=== PATIENT | female | born 1975 | race Caucasian/White ===

== ENCOUNTER 2016-07-31 10:25 | Emergency (ER) | payer OTHER ==
[2016-07-31] MEDS ORDERED: MORPHINE SULFATE INJ 4 MG IVP ONE (10:35)
--- NOTE | 2016-07-31 10:37 | DR.GENAD ---
HPI - Complaint/Symptoms Chief Complaint Doctors Comments: Patient states that she outside and fell hitting the right side of her head. There was no LOC, Admits to having a bad frontal headache. Patient admits to a history o syncope and is followed by a neurologist. She admits to nausea. - Nurses notes reviewed Nurses Notes Review: Yes - Mode of Arrival Mode of Arrival: EMS - Timing Came on: Suddenly - Duration Duration: Since Onset - Severity Severity: Moderate PMH - PMH Past Medical History: denies: Asthma, Dementia, Depression Surgical History: Unknown, No History, AAA Repair, Abdominal Surgery, Angioplasty/Stents, Carotid Endarterectomy, Cholecystectomy, Ectopic , [employer] ADVISER Surgery, Hysterectomy ROS - Review of Systems Constitutional: No Symptoms Reported. negative: Diaphoresis Eyes: No Symptoms Reported Respiratoy: No Symptoms Reported Cardiovascular: No Symptoms Reported Genitourinary: No Symptoms Reported Neurological: No Symptoms Reported, Headache. negative: Numbness, Paresthesia Musculoskeletal: No Symptoms Reported Integumentary: No Symptoms Reported, Change in Color Hematologic/Lymphatic: No Symptoms Reported, See HPI Endocrine: No Symptoms Reported Psychiatric: See HPI All Other Systems: Reviewed and Negative PE - Vital Signs Vitals: Temperature 98.7 F Pulse Rate 98 Respiratory Rate 16 Blood Pressure 135/98 O2 Sat by Pulse Oximetry 99 - General Limitations: No Limitations General Appearance: Alert, In No Apparent Distress - Head Head Exam: Normal Inspection, Atraumatic - Eyes Eye exam: Normal Appearance, PERRL, EOMI - ENT ENT Exam: Normal Exam, Normal Oropharynx External Ear Exam: Normal External Inspection TM/Canal Exam: Bilateral Normal Nose Exam: Normal Nose Exam Mouth Exam: Normal Inspection Throat Exam: Normal Inspection, Tonsillar Erythema - Neck Neck Exam: Normal Inspection, Full ROM - Chest Chest Inspection: Normal Inspection, Symmetric Chest Wall Rise - Respiratory Respiratory Exam: Normal Lung Sounds Bilat Respiratory Exam: Bilateral Clear to Auscultation - Cardiovascular Cardiovascular Exam: Regular Rate, Normal Rhythm, Bradycardia, Tachycardia - Abdominal Exam Abdominal Exam: Normal Inspection Abdominal Tenderness: negative: RUQ, RLQ, LUQ, LLQ, Epigastrium, Suprapubic, Diffuse, Mild, Moderate, Severe, Other - Extremities Extremities Exam: Normal Inspection, Full ROM - Back Back Exam: Normal Inspection, (R) CVA Tenderness, (L) CVA Tenderness, Muscle Spasm - Neurologic Neurological Exam: Alert, Oriented X3, CN II-XII Intact - Psychiatric Psychiatric Exam: Normal Affect, Normal Mood, Depressed - Skin Skin Exam: Warm, Dry, Intact Course - Reevaluation 1st: Improved ROR - Labs Reviewed Result Diagrams: 07/31/16 10:50 07/31/16 10:50 Laboratory: WBC 10.2 X10^3/uL (3.6-10.0) H 07/31/16 10:50 RBC 5.39 X10^6/uL (3.5-5.4) 07/31/16 10:50 Hgb 15.7 g/dL (12.0-16.0) 07/31/16 10:50 Hct 46.3 % (36.0-47.0) 07/31/16 10:50 MCV 85.9 fL (80.0-100.0) 07/31/16 10:50 MCH 29.0 pg (27.0-34.0) 07/31/16 10:50 MCHC 33.8 g/dL (33.0-35.0) 07/31/16 10:50 RDW 13.7 % (11.6-16.5) 07/31/16 10:50 Plt Count 263 X10^3/uL (150.0-450.0) 07/31/16 10:50 MPV 6.8 fL (7.4-11.0) L 07/31/16 10:50 Neut % 53.4 % (42.0-75.0) 07/31/16 10:50 Lymph % 40.2 % (21.0-51.0) 07/31/16 10:50 [place] % 4.5 % (0.0-13.0) 07/31/16 10:50 Eos % 1.1 % (0.9-2.9) 07/31/16 10:50 Baso % 0.8 % (0.2-1.0) 07/31/16 10:50 Neut # 5.5 x10^3/uL (2.2-4.8) H 07/31/16 10:50 Lymph # 4.1 X10^3/uL (1.3-2.9) H 07/31/16 10:50 [place] # 0.5 x10^3/uL (0.3-0.8) 07/31/16 10:50 Eos # 0.1 x10^3/uL (0.0-0.2) 07/31/16 10:50 Baso # 0.1 X10^3/uL (0.0-0.1) 07/31/16 10:50 Absolute Nucleated RBC 0.0 /100WBC 07/31/16 10:50 Sodium 142 mmol/L (136-145) 07/31/16 10:50 Corrected Sodium 143 mmol/L (136-145) 07/31/16 10:50 Potassium 4.4 mmol/L (3.5-5.1) 07/31/16 10:50 Chloride 105 mmol/L (98-107) 07/31/16 10:50 Carbon Dioxide 28.2 mmol/L (21-32) 07/31/16 10:50 BUN 9 mg/dL (7-18) 07/31/16 10:50 Creatinine 0.52 mg/dL (0.55-1.02) L 07/31/16 10:50 Est GFR (MDRD) Af Amer > 60 (>60) 07/31/16 10:50 Est GFR (MDRD) Non-Af > 60 (>60) 07/31/16 10:50 Glucose 141 mg/dL (65-99) H 07/31/16 10:50 Calcium 9.3 mg/dL (8.5-10.1) 07/31/16 10:50 Corrected Calcium TNP 07/31/16 10:50 Total Bilirubin 0.20 mg/dL (0.2-1.0) 07/31/16 10:50 AST 20 Units/L (15-37) 07/31/16 10:50 ALT 34 Units/L (12-78) 07/31/16 10:50 Alkaline Phosphatase 96 Units/L (46-116) 07/31/16 10:50 Total Protein 7.9 g/dL (6.4-8.2) 07/31/16 10:50 Albumin 4.3 g/dL (3.4-5.0) 07/31/16 10:50 Globulin 3.6 g/dL (2.5-4.5) 07/31/16 10:50 Albumin/Globulin Ratio 1.2 Ratio (1.1-2.1) 07/31/16 10:50 Specimen Type Clean catch urine 07/31/16 11:09 Urine Color Yellow (YELLOW) 07/31/16 11:09 Urine Appearance Clear (CLEAR) 07/31/16 11:09 Urine pH 6.0 (5.0 - 8.0) 07/31/16 11:09 Ur Specific [place] 1.015 (1.000-1.030) 07/31/16 11:09 Urine Protein Negative (NEGATIVE) 07/31/16 11:09 Urine Glucose (UA) Negative (NEGATIVE) 07/31/16 11:09 Urine Ketones Negative (NEGATIVE) 07/31/16 11:09 Urine Occult Blood Negative (NEGATIVE) 07/31/16 11:09 Urine Nitrite Negative (NEGATIVE) 07/31/16 11:09 Urine Bilirubin Negative (NEGATIVE) 07/31/16 11:09 Urine Urobilinogen Normal (NORMAL) 07/31/16 11:09 Ur Leukocyte Esterase Negative (NEGATIVE) 07/31/16 11:09 Urine RBC 0-2 /HPF (NEGATIVE) 07/31/16 11:09 Urine WBC 0-2 /HPF (NEGATIVE) 07/31/16 11:09 Ur Squamous Epith Cells Few /HPF (NEGATIVE) 07/31/16 11:09 Calcium Oxalate Crystal Rare /HPF (NEGATIVE) 07/31/16 11:09 Urine Bacteria Negative /HPF (NEGATIVE) 07/31/16 11:09 Ur Culture Indicated? No/not indicated 07/31/16 11:09 - XRAY XRAY Interpreted by: Radiologist (CT Brain w/o contast: Negative) - Diagnosis Discharge Problem: Headache Qualifiers: Headache type: unspecified Headache chronicity pattern: acute headache Intractability: not intractable Qualified Code(s): R51 - Headache - Discharge Plan Condition: Stable - Follow ups/Referrals Follow ups/Referrals: NFD,None [Primary Care Provider] - 3 days - Instructions
[2016-07-31 10:41] VITALS: BP 135/98; BMI 24.3
[2016-07-31] MEDS ORDERED: MORPHINE SULFATE INJ 4 MG ONE (10:44)
[2016-07-31 10:57] LABS: BASOPHILS # (AUTO) 0.1 X10^3/uL (0.0-0.1); BASOPHILS % (AUTO) 0.8 % (0.2-1.0); EOSINOPHILS # (AUTO) 0.1 x10^3/uL (0.0-0.2); EOSINOPHILS % (AUTO) 1.1 % (0.9-2.9); HEMATOCRIT 46.3 % (36.0-47.0); HEMOGLOBIN 15.7 g/dL (12.0-16.0); LYMPHOCYTES # (AUTO) 4.1 X10^3/uL (1.3-2.9); LYMPHOCYTES % (AUTO) 40.2 % (21.0-51.0); MEAN CORPUSCULAR HGB CONC 33.8 g/dL (33.0-35.0); MEAN CORPUSCULAR VOLUME 85.9 fL (80.0-100.0); MEAN PLATELET VOLUME 6.8 fL (7.4-11.0); MONOCYTES # (AUTO) 0.5 x10^3/uL (0.3-0.8); MONOCYTES % (AUTO) 4.5 % (0.0-13.0); NEUTROPHILS # (AUTO) 5.5 x10^3/uL (2.2-4.8); NEUTROPHILS % (AUTO) 53.4 % (42.0-75.0); PLATELET COUNT 263 X10^3/uL (150.0-450.0); RED BLOOD COUNT 5.39 X10^6/uL (3.5-5.4); RED CELL DISTRIBUTION WIDTH 13.7 % (11.6-16.5); WHITE BLOOD COUNT 10.2 X10^3/uL (3.6-10.0)
[2016-07-31 11:07] LABS: ALANINE AMINOTRANSFERASE 34 Units/L (12-78); ALBUMIN 4.3 g/dL (3.4-5.0); ALKALINE PHOSPHATASE 96 Units/L (46-116); ASPARTATE AMINO TRANSFERASE 20 Units/L (15-37); BLOOD UREA NITROGEN 9 mg/dL (7-18); CALCIUM 9.3 mg/dL (8.5-10.1); CARBON DIOXIDE 28.2 mmol/L (21-32); CHLORIDE 105 mmol/L (98-107); COR NA(FOR HYPERGLY) 143 mmol/L (136-145); CREATININE 0.52 mg/dL (0.55-1.02); GLUCOSE 141 mg/dL (65-99); SODIUM 142 mmol/L (136-145); TOTAL PROTEIN 7.9 g/dL (6.4-8.2); eGFR BLACK RACES > 60 (>60); eGFR NON BLACK RACES > 60 (>60)
--- NOTE | 2016-07-31 11:15 | CT ---
HISTORY: Fall, hit head, severe headache Study: CT brain without contrast Comparison: None Technique: Multiple axial images of the brain were obtained from the skull base to the vertex without administr ation of IV contrast. Dose reduction techniques including Automated Exposure Control (AEC) and adju stment of mA and kV were utilized. Findings: The brain parenchyma is within normal limits for patient's age. No evidence of acute hemorrhage, mi dline shift, mass effect or abnormal extra-axial fluid collection. The ventricular system is symmet anatoliy and nondilated. The soft tissues and osseous structures are unremarkable. The visualized [place] sinuses are clear. IMPRESSION: 1.No acute intracranial abnormality. Reported By:
[2016-07-31 11:54] LABS: BILIRUBIN,URINE NEGATIVE (NEGATIVE); BLOOD/HEMOGLOBIN,URINE NEGATIVE (NEGATIVE); GLUCOSE, URINE NEGATIVE (NEGATIVE); KETONES,URINE NEGATIVE (NEGATIVE); LEUKOCYTE ESTERASE ,URINE NEGATIVE (NEGATIVE); NITRITES,URINE NEGATIVE (NEGATIVE); PROTEIN,URINE NEGATIVE (NEGATIVE); UROBILINOGEN,URINE NORMAL (NORMAL)
[2016-07-31 12:10] LABS: APPEARANCE,URINE CLEAR (CLEAR); BACTERIA,URINE NEGATIVE /HPF (NEGATIVE); CALCIUM OXALATE CRYSTALS,UR RARE /HPF (NEGATIVE); COLOR,URINE YELLOW (YELLOW); RBC,URINE 0-2 /HPF (NEGATIVE); SQUAMOUS EPITHELIAL CELL,UR FEW /HPF (NEGATIVE)
[2016-07-31] MEDS ORDERED: ATIVAN INJ 2 MG VIAL IVP ONE (12:20)
[2016-07-31] MEDS ORDERED: ATIVAN INJ 2 MG VIAL ONE (12:20)
== END 2016-07-31 13:46 | disposition home or self-care (01) ==
LOC: ER 10:25
DX: R51 Headache (principal)
CPT/HCPCS: 36415; 70450; 80053; 80185; 81001; 85025; 93005; 93010; 96365; 96374; 96375; 99283; J2060; J2270

== ENCOUNTER 2022-07-04 09:53 | Inpatient (IN) ==
[2022-07-04] MEDS ORDERED: PROTONIX INJ 40 MG VIAL IVP ONE (10:01)
[2022-07-04] MEDS ORDERED: NS 1,000 ML IV 1,000 ML IV ONE (10:01)
[2022-07-04] MEDS ORDERED: LEVSIN/MAALOX/LIDOC VISC PO ONE (10:01)
[2022-07-04] MEDS ORDERED: ATIVAN INJ 2 MG VIAL IVP ONE (10:02)
[2022-07-04] MEDS ORDERED: LEVSIN/MAALOX/LIDOC VISC ONE (10:07)
[2022-07-04] MEDS ORDERED: PROTONIX INJ 40 MG VIAL ONE (10:07)
[2022-07-04] MEDS ORDERED: NS 1,000 ML IV 1,000 ML ONE (10:07)
[2022-07-04] MEDS ORDERED: ATIVAN INJ 2 MG VIAL ONE (10:08)
--- NOTE | 2022-07-04 10:08 | DR.NAUSEAF ---
HPI Time Seen Time Seen by Provider: 07/04/22 10:01 Primary Care Physician Primary Care Physician: NFD Complaints Chief Complaint Doctors Comments: 46 y/o female brought in via EMS for evaluation. Ill the past 3 days with nausea, vomiting and decreased PO intake. Denies diarrhea. Has had decreased urine output. + h/o TBI years ago, with subsequent seizure disorder. + seizures past few days, last seizure 2 hours ago. Denies fever, URI symptoms. Having heartburn, mild abdominal discomfort after vomiting. No current MD, no on seizure meds at this time. Chief Complaint:: PT REPORTS NAUSEA, VOMITING AND INTERMITTENT SEIZURES SINCE SUNDAY. PT STATES THAT SHE HASN'T EATEN OR VOIDED SINCE SUNDAY. COVID-19 Coronavirus risk:travel/contact w/high risk person: No Has patient experienced Coronavirus symptoms: No Reviewed Nurses Notes Reviewed: Yes Source History Provided: Patient Mode of Arrival Mode of Arrival: Ambulatory Timing Onset of Chief Complaint: 07/01/22 PMH PMH Past Medical History: Yes Past Medical History: Diabetes and Seizures Past Medical History Comment: TBI Past Surgical History: Yes Surgical History: Appendectomy, and Hysterectomy Past Surgical History Comment: KYPHOPLASTY Family History History of Family Medical Conditions: Yes Family Medical History: Cancer, [place] and Coronary Artery Disease Social History Does patient currently use any type of tobacco product: No Have you used tobacco products in the last 12 months: No Type of Tobacco Use: None Does any household member use tobacco: No Alcohol Use: Rarely Do you use any recreational Drugs:: Yes (MARIJUANA) Lives With: Family Lives Where: Home Travel Risk Coronavirus risk:travel/contact w/high risk person: No Has patient experienced Coronavirus symptoms: No Infectious screening In the last 2 months have you had wt loss of >10#?: NO Have you had fever, night sweats or hemotysis?: No Have you traveled outside the country in the last 6 months?: No Isolation: Standard ROS Review of Systems Constitutional: Weakness Eyes: No Symptoms Reported ENTM: No Symptoms Reported Respiratoy: No Symptoms Reported Cardiovascular: No Symptoms Reported Gastrointestinal/Abdominal: Abdominal Pain, Nausea and Vomiting Genitourinary: Other (decreased urinary output) Neurological: Seizure and Weakness Musculoskeletal: No Symptoms Reported Integumentary: No Symptoms Reported Psychiatric: No Symptoms Reported All Other Systems: Reviewed and Negative PE Vital Signs Vitals: Temperature 98.1 F Pulse Rate 96 Respiratory Rate 28 Blood Pressure [Left Arm] 124/70 Blood Pressure 110/71 O2 Sat by Pulse Oximetry 99 General General Appearance: Alert and In No Apparent Distress Eyes Eye exam: PERRL and EOMI ENT ENT Exam: Normal Oropharynx and Mucous Membranes Moist Neck Neck Exam: Normal Inspection and Full ROM Respiratory Respiratory Exam: Normal Lung Sounds Bilat; negative Accessory Muscle Use or Respiratory Distress Cardiovascular Cardiovascular Exam: Regular Rate, Normal Rhythm and Normal Heart Sounds Abdominal Exam Abdominal Exam: Normal Bowel Sounds and Soft; negative Tenderness Extremities Extremities Exam: Normal Inspection and Full ROM; negative Edema Neurologic Neurological Exam: Alert, Oriented X3 and CN II-XII Intact; negative Motor Sensory Deficit Skin Skin Exam: Warm and Dry COURSE Treatment Treatment: 46 y/o female ill with N/V x 3 days, + having seizures. W/u initiated. Given IV fluids, IV ativan. 1138 - CBC acceptable. CMP with low K+ 2.1, elevated glucose 423. Pt given additional IV fluids, with potassium. Discussed with Dr Lombardo, will admit. ROR Labs Reviewed Laboratory Results Reviewed?: Yes Result Diagrams: 07/04/22 10:47 07/04/22 10:47 Laboratory: WBC 10.8 X10^3/uL (3.6-10.0) H 07/04/22 10:47 RBC 5.17 X10^6/uL (3.5-5.4) 07/04/22 10:47 Hgb 15.6 g/dL (12.0-16.0) 07/04/22 10:47 Hct 45.0 % (36.0-47.0) 07/04/22 10:47 MCV 87.1 fL (80.0-100.0) 07/04/22 10:47 MCH 30.1 pg (27.0-34.0) 07/04/22 10:47 MCHC 34.6 g/dL (33.0-35.0) 07/04/22 10:47 RDW 13.7 % (11.6-16.5) 07/04/22 10:47 Plt Count 181 X10^3/uL (150.0-450.0) 07/04/22 10:47 MPV 7.5 fL (7.4-11.0) 07/04/22 10:47 Neut % (Auto) 67.9 % (42.0-75.0) 07/04/22 10:47 Lymph % (Auto) 21.1 % (21.0-51.0) 07/04/22 10:47 [place] % (Auto) 10.4 % (0.0-13.0) 07/04/22 10:47 Eos % (Auto) 0.2 % (0.9-2.9) L 07/04/22 10:47 Baso % (Auto) 0.4 % (0.2-1.0) 07/04/22 10:47 Neut # (Auto) 7.3 x10^3/uL (2.2-4.8) H 07/04/22 10:47 Lymph # (Auto) 2.3 X10^3/uL (1.3-2.9) 07/04/22 10:47 [place] # (Auto) 1.1 x10^3/uL (0.3-0.8) H 07/04/22 10:47 Eos # (Auto) 0.0 x10^3/uL (0.0-0.2) 07/04/22 10:47 Baso # (Auto) 0.0 X10^3/uL (0.0-0.1) 07/04/22 10:47 Absolute Nucleated RBC 0.1 /100WBC 07/04/22 10:47 Sodium 126 mmol/L (136-145) L 07/04/22 10:47 Corrected Sodium 134 mmol/L (136-145) L 07/04/22 10:47 Potassium 2.1 mmol/L (3.5-5.1) L* 07/04/22 10:47 Chloride 76 mmol/L (98-107) L* 07/04/22 10:47 Carbon Dioxide 44.8 mmol/L (21-32) H 07/04/22 10:47 BUN 38 mg/dL (7-18) H 07/04/22 10:47 Creatinine 1.46 mg/dL (0.55-1.02) H 07/04/22 10:47 Est GFR (MDRD) Af Amer 49 (>60) L 07/04/22 10:47 Est GFR (MDRD) Non-Af 41 (>60) L 07/04/22 10:47 Glucose 423 mg/dL (65-99) H 07/04/22 10:47 Calcium 7.9 mg/dL (8.5-10.1) L 07/04/22 10:47 Corrected Calcium TNP 07/04/22 10:47 Magnesium 1.5 mg/dL (2.0-2.9) L 07/04/22 10:47 Total Bilirubin 2.20 mg/dL (0.2-1.0) H 07/04/22 10:47 AST 44 Units/L (15-37) H 07/04/22 10:47 ALT 46 Units/L (12-78) 07/04/22 10:47 Alkaline Phosphatase 131 Units/L (46-116) H 07/04/22 10:47 Total Protein 7.9 g/dL (6.4-8.2) 07/04/22 10:47 Albumin 4.4 g/dL (3.4-5.0) 07/04/22 10:47 Globulin 3.5 g/dL (2.5-4.5) 07/04/22 10:47 Albumin/Globulin Ratio 1.3 Ratio (1.1-2.1) 07/04/22 10:47 Lipase 73 Units/L (73-393) 07/04/22 10:47 Opioid Opioid Risk Tool Age (Brian box if 16-45): No History of Preadolescent Sexual Abuse: No Total: 0 Total Score Risk Category: Low Risk Copyright: Albert WALKER predicting aberrant behaviors Discharge Plan Diagnosis Discharge Problem: Vomiting, Acute hypokalemia Discharge Plan Patient Disposition: 09 ADMITTED INPATIENT Condition: Stable Orders to Discharge Patient Discharge Orders: Transfer (Routine); Ordered 07/04/22 Ordered By: Jese Mckeon
[2022-07-04] MEDS ORDERED: ZOFRAN INJ 4 MG VIAL IVP ONE (10:29)
[2022-07-04] MEDS ORDERED: ZOFRAN INJ 4 MG VIAL ONE (10:30)
[2022-07-04 10:57] LABS: BASOPHILS % (AUTO) 0.4 % (0.2-1.0); EOSINOPHILS % (AUTO) 0.2 % (0.9-2.9); HEMOGLOBIN 15.6 g/dL (12.0-16.0); LYMPHOCYTES # (AUTO) 2.3 X10^3/uL (1.3-2.9); LYMPHOCYTES % (AUTO) 21.1 % (21.0-51.0); MEAN CORPUSCULAR HEMOGLOBIN 30.1 pg (27.0-34.0); MEAN CORPUSCULAR HGB CONC 34.6 g/dL (33.0-35.0); MEAN CORPUSCULAR VOLUME 87.1 fL (80.0-100.0); MEAN PLATELET VOLUME 7.5 fL (7.4-11.0); MONOCYTES # (AUTO) 1.1 x10^3/uL (0.3-0.8); MONOCYTES % (AUTO) 10.4 % (0.0-13.0); NEUTROPHILS # (AUTO) 7.3 x10^3/uL (2.2-4.8); NEUTROPHILS % (AUTO) 67.9 % (42.0-75.0); RED BLOOD COUNT 5.17 X10^6/uL (3.5-5.4); RED CELL DISTRIBUTION WIDTH 13.7 % (11.6-16.5); WHITE BLOOD COUNT 10.8 X10^3/uL (3.6-10.0)
[2022-07-04 11:15] LABS: ALANINE AMINOTRANSFERASE 46 Units/L (12-78); ALBUMIN 4.4 g/dL (3.4-5.0); ALKALINE PHOSPHATASE 131 Units/L (46-116); ASPARTATE AMINO TRANSFERASE 44 Units/L (15-37); BLOOD UREA NITROGEN 38 mg/dL (7-18); CALCIUM 7.9 mg/dL (8.5-10.1); CARBON DIOXIDE 44.8 mmol/L (21-32); COR NA(FOR HYPERGLY) 134 mmol/L (136-145); CREATININE 1.46 mg/dL (0.55-1.02); LIPASE 73 Units/L (73-393); SODIUM 126 mmol/L (136-145); TOTAL PROTEIN 7.9 g/dL (6.4-8.2); eGFR NON BLACK RACES 41 (>60)
[2022-07-04 11:17] LABS: CHLORIDE 76 mmol/L (98-107)
[2022-07-04] MEDS ORDERED: NS 1/2 + KCL 20 MEQ/L 1,000 ML IV ONE (11:27)
[2022-07-04] MEDS: NS 1/2 + KCL 20 MEQ/L 1,000 ML IV SCH ×2 (11:33→21:26)
[2022-07-04 12:34] LABS: BILIRUBIN,URINE NEGATIVE (NEGATIVE); BLOOD/HEMOGLOBIN,URINE 1+ (NEGATIVE); GLUCOSE, URINE 4+ (NEGATIVE); KETONES,URINE 1+ (NEGATIVE); LEUKOCYTE ESTERASE ,URINE 2+ (NEGATIVE); NITRITES,URINE NEGATIVE (NEGATIVE); PROTEIN,URINE 2+ (NEGATIVE); UROBILINOGEN,URINE NORMAL (NORMAL)
[2022-07-04 12:35] LABS: APPEARANCE,URINE CLEAR (CLEAR); COLOR,URINE YELLOW (YELLOW)
[2022-07-04 12:45] LABS: RBC,URINE 0-2 /HPF (0-3)
[2022-07-04 12:46] LABS: BACTERIA,URINE TRACE /HPF (NEGATIVE); GRANULAR CASTS,URINE RARE /LPF (NEGATIVE); SQUAMOUS EPITHELIAL CELL,UR FEW /HPF (NEGATIVE)
[2022-07-04] MEDS ORDERED: COMPAZINE INJ IVP ONE (13:07)
[2022-07-04] MEDS ORDERED: BENADRYL INJ 50 MG VIAL IVP ONE (13:07)
[2022-07-04] MEDS ORDERED: COMPAZINE INJ ONE (13:09)
[2022-07-04] MEDS ORDERED: BENADRYL INJ 50 MG VIAL ONE (13:10)
[2022-07-04] MEDS ORDERED: MICRO K EXTEN CAP 10 MEQ PO PRN (13:34)
[2022-07-04] MEDS ORDERED: POTASSIUM CHL 60 MEQ/NS 0.45% 500 ML IV PRN (13:34)
[2022-07-04] MEDS ORDERED: MAGNESIUM SULFATE 1 GRAM/100 mL PREMIX 1 G/100 ML BAG IV PRN (13:34)
[2022-07-04] MEDS ORDERED: POTASSIUM CHL 40 MEQ/NS 0.45% 500 ML IV PRN (13:34)
[2022-07-04] MEDS ORDERED: K-RIDER 10 MEQ/NS 100 ML 10 MEQ/100 ML BAG IV PRN (13:34)
[2022-07-04] MEDS ORDERED: POTASSIUM CHLORIDE LIQ 20 MEQ UDC PO PRN (13:34)
[2022-07-04] MEDS ORDERED: K-DUR TAB 20 MEQ PO PRN (13:34)
[2022-07-04] MEDS ORDERED: KLOR-CON PO PRN (13:34)
[2022-07-04] MEDS ORDERED: NS 1/2 + KCL 20 MEQ/L 1,000 ML IV SCH (13:49)
[2022-07-04] MEDS ORDERED: NS IV ONE ×3 (14:00)
[2022-07-04] MEDS ORDERED: [UNRECOGNIZED DRUG - OTHER] IV ONE ×3 (14:00)
[2022-07-04] MEDS ORDERED: POTASSIUM CHLORIDE IV ONE ×3 (14:00)
[2022-07-04] MEDS: NovoLIN R (or HumuLIN R) SC PRN ×2 (17:06→20:43)
[2022-07-04] MEDS ORDERED: MILK OF MAGNESIA PO PRN (22:38)
[2022-07-04] MEDS ORDERED: COLACE CAP 100 MG PO PRN (22:38)
[2022-07-05] MEDS: ZOFRAN INJ 4 MG VIAL IVP PRN ×4 (02:47→21:54)
[2022-07-05] MEDS: MAALOX or MYLANTA PO PRN ×4 (02:50→21:53)
[2022-07-05] MEDS: NovoLIN R (or HumuLIN R) SC PRN ×4 (05:34→21:53)
[2022-07-05] MEDS: NS 1/2 + KCL 20 MEQ/L 1,000 ML IV SCH ×3 (05:35→20:47)
[2022-07-05 06:11] LABS: BASOPHILS # (AUTO) 0.1 X10^3/uL (0.0-0.1); BASOPHILS % (AUTO) 0.3 % (0.2-1.0); EOSINOPHILS % (AUTO) 0.1 % (0.9-2.9); HEMATOCRIT 44.9 % (36.0-47.0); HEMOGLOBIN 15.7 g/dL (12.0-16.0); LYMPHOCYTES % (AUTO) 26.9 % (21.0-51.0); MEAN CORPUSCULAR HEMOGLOBIN 30.4 pg (27.0-34.0); MEAN CORPUSCULAR VOLUME 86.8 fL (80.0-100.0); MEAN PLATELET VOLUME 7.6 fL (7.4-11.0); MONOCYTES # (AUTO) 0.8 x10^3/uL (0.3-0.8); MONOCYTES % (AUTO) 5.4 % (0.0-13.0); NEUTROPHILS # (AUTO) 9.9 x10^3/uL (2.2-4.8); NEUTROPHILS % (AUTO) 67.3 % (42.0-75.0); RED BLOOD COUNT 5.17 X10^6/uL (3.5-5.4); RED CELL DISTRIBUTION WIDTH 13.6 % (11.6-16.5); WHITE BLOOD COUNT 14.8 X10^3/uL (3.6-10.0)
[2022-07-05 06:22] LABS: ALANINE AMINOTRANSFERASE 59 Units/L (12-78); ALBUMIN 4.1 g/dL (3.4-5.0); ALKALINE PHOSPHATASE 129 Units/L (46-116); ASPARTATE AMINO TRANSFERASE 97 Units/L (15-37); BLOOD UREA NITROGEN 27 mg/dL (7-18); CALCIUM 8.6 mg/dL (8.5-10.1); CARBON DIOXIDE 36.1 mmol/L (21-32); CHLORIDE 85 mmol/L (98-107); COR NA(FOR HYPERGLY) 135 mmol/L (136-145); CREATININE 0.83 mg/dL (0.55-1.02); MAGNESIUM 2.4 mg/dL (2.0-2.9); SODIUM 131 mmol/L (136-145); TOTAL PROTEIN 7.6 g/dL (6.4-8.2); eGFR NON BLACK RACES > 60 (>60)
[2022-07-05 09:08] VITALS: BMI 27.3
[2022-07-05] MEDS ORDERED: ROCEPHIN VIAL 1 GRAM 1 G in NS 100 ML IV 100 ML IV SCH (10:15)
[2022-07-05] MEDS ORDERED: CEREBYX INJ 1,000 MG in NS 50 ML IV 50 ML IV NR (11:00)
[2022-07-05] MEDS ORDERED: NS 100 ML IV 100 ML ONE (11:11)
[2022-07-05] MEDS: LEVAQUIN PREMIX IV 500 MG 500 MG/100 ML BAG IV SCH (14:34)
[2022-07-05] MEDS: CEREBYX INJ 100 MG in NS 50 ML IV 50 ML IV SCH (21:52)
[2022-07-06] MEDS ORDERED: CATAPRES TAB 0.1 MG PO ONE (00:14)
--- NOTE | 2022-07-06 00:30 | EKG ---
Test Reason : hypertension Blood Pressure : */* mmHG Vent. Rate : 104 BPM Atrial Rate : 104 BPM P-R Int : 146 ms QRS Dur : 80 ms QT Int : 362 ms P-R-T Axes : 64 73 66 degrees QTc Int : 476 ms Sinus tachycardia Otherwise normal ECG No previous ECGs available Referred By: Confirmed By:
[2022-07-06] MEDS ORDERED: NORMODYNE INJ 20 MG VIAL IV PRN (03:44)
[2022-07-06 06:00] LABS: BASOPHILS % (AUTO) 0.4 % (0.2-1.0); EOSINOPHILS # (AUTO) 0.1 x10^3/uL (0.0-0.2); EOSINOPHILS % (AUTO) 0.7 % (0.9-2.9); HEMATOCRIT 44.7 % (36.0-47.0); HEMOGLOBIN 15.5 g/dL (12.0-16.0); LYMPHOCYTES # (AUTO) 3.8 X10^3/uL (1.3-2.9); LYMPHOCYTES % (AUTO) 42.5 % (21.0-51.0); MEAN CORPUSCULAR HEMOGLOBIN 30.4 pg (27.0-34.0); MEAN CORPUSCULAR HGB CONC 34.7 g/dL (33.0-35.0); MEAN CORPUSCULAR VOLUME 87.5 fL (80.0-100.0); MEAN PLATELET VOLUME 7.8 fL (7.4-11.0); MONOCYTES # (AUTO) 0.6 x10^3/uL (0.3-0.8); MONOCYTES % (AUTO) 6.2 % (0.0-13.0); NEUTROPHILS # (AUTO) 4.5 x10^3/uL (2.2-4.8); NEUTROPHILS % (AUTO) 50.2 % (42.0-75.0); RED BLOOD COUNT 5.11 X10^6/uL (3.5-5.4); RED CELL DISTRIBUTION WIDTH 13.5 % (11.6-16.5)
[2022-07-06] MEDS: CEREBYX INJ 100 MG in NS 50 ML IV 50 ML IV SCH ×3 (06:02→21:17)
[2022-07-06] MEDS: NS 1/2 + KCL 20 MEQ/L 1,000 ML IV SCH ×3 (06:02→20:16)
[2022-07-06] MEDS: MAALOX or MYLANTA PO PRN (06:03)
[2022-07-06] MEDS: ZOFRAN INJ 4 MG VIAL IVP PRN (06:03)
[2022-07-06] MEDS: NovoLIN R (or HumuLIN R) SC PRN ×4 (06:03→21:20)
[2022-07-06 06:09] LABS: ALANINE AMINOTRANSFERASE 76 Units/L (12-78); ALBUMIN 3.9 g/dL (3.4-5.0); ALKALINE PHOSPHATASE 123 Units/L (46-116); ASPARTATE AMINO TRANSFERASE 129 Units/L (15-37); BLOOD UREA NITROGEN 19 mg/dL (7-18); CARBON DIOXIDE 35.4 mmol/L (21-32); CHLORIDE 90 mmol/L (98-107); COR NA(FOR HYPERGLY) 135 mmol/L (136-145); CREATININE 0.77 mg/dL (0.55-1.02); SODIUM 132 mmol/L (136-145); TOTAL PROTEIN 7.5 g/dL (6.4-8.2); eGFR NON BLACK RACES > 60 (>60)
[2022-07-06] MEDS: LEVAQUIN PREMIX IV 500 MG 500 MG/100 ML BAG IV SCH (08:08)
[2022-07-06] MEDS: MOTRIN TAB 800 MG PO PRN ×2 (09:35→21:23)
[2022-07-06] MEDS ORDERED: LEVSIN/MAALOX/LIDOC VISC PO SCH (11:00)
--- NOTE | 2022-07-06 11:39 | DR.H&P ---
H&P - History & Physical for Day of: H&P Date: 07/04/22 - Chief Complaint Chief Complaint: NAUSEA, VOMITING, SEIZURES - History of Present Illness History of Present Illness: IS A 46 YEAR OLD WHITE FEMALE. SHE PRESENTED TO THE ER VIA EMS WITH COMPLAINTS OF PERSISTENT NAUSEA, VOMITING, AND DECREASED ORAL INTAKE. ADDITIONALLY, SHE COMPLAINS OF HAVING MULTIPLE SEIZURES SINCE SYMTPOMS STARTED. SHE REPORTS BEING UNABLE TO EAT OR DRINK WITHOUT SEVERE NAUSEA AND VOMITING. SHE REPORTS DECREASED URINE OUTPUT X 2 DAYS. HER LAST SEIZURE WAS APPROXIMATELY TWO HOURS PRIOR TO ARRIVAL. SHE DENIES DIARREA, FEVER, URI SYMPTOMS. SHE DOES ADMIT TO HEARTBURN AND MILD ABDOMINAL DISCOMFORT AFTER VOMITING. HER PMH INCLUDES TYPE 2 DIABETES, SEIZURE DISORDER, HX OF TRAUMATIC BRAIN INJURY, APPENDECTOMY, , HYSTERECTOMY, AND KYPHOPLASTY. SHE IS NOT CURRENTLY ON ANY DIABETIC OR SEIZURE MEDICATIONS. SHE DOES ADMIT TO RECREATIONAL USE OF MARIJUANA. ON ARRIVAL TO THE HOSPITAL, VITALS WERE: 98.1-91-20-98%-135/87. LABS WERE OBTAINED. WBC 10.8, RBC 5.17, HGB 15.6, HCT 45.0, PLT COUNT 181, SODIUM 126, POTASSIUM 2.1, CHLORIDE 76, CARBON DIOXIDE 44.8, BUN 38, CREATININE 1.46, GLUCOSE 423, CALCIUM 7.9, MAGNESIUM 1.5, TOTAL BILI 2.20, AST 44, ALT 46, ALK PHOS 131, TOTAL PROTEIN 7.9, ALBUMIN 4.4, LIPASE 73. URINALYSIS REVEALED: WBC 5-10. RBC 0-2, LEUKOCYTES 2+, BACTERIA TRACE. BLOOD AND URINE CULTURES WERE SET UP. EKG WAS OBTAINED AND REVEALED: SINUS TACHYCARDIA WITH HR 104. OTHERWISE, NORMAL EKG. IN THE ER, SHE WAS GIVEN A GI COCKTAIL, A NORMAL SALINE BOLUS, PROTONIX 40MG IV X 1, ATIVAN 1MG IV X 1, ZOFRAN 4MG IV X 1, BENADRYL 25MG IV X 1, COMPAZINE 10MG IV X 1. SHE WAS ADMITTED TO THE HOSPITAL FOR FURTHER EVALUATION AND TREATMENT OF ACUTE HYPOKALEMIA, HYPONATREMIA, DEHYDRATION, HYPERGLYCEMIA, INTRACTABLE NAUSEA AND VOMITING. SHE WAS STARTED ON NORMAL SALINE WITH 20MEQ KCL AT 100 ML/HR, LEVAQUIN 500MG IV DAILY, FOSPHENYTOIN SODIUM 100MG IV TID, OTBS ACHS, HUMULIN R SLIDING SCALE, ZOFRAN 4MG IV Q6H PRN, THE POTASSIUM AND MAGNESIUM PROTOCOLS. OTHERWISE, WE PLAN TO FOLLOW- UP WITH AM LABS AND CONTINUE TO MONITOR. TIME SPENT ON CLINICAL ASSESSMENT, REVIWING LABS AND IMAGING, DECISION MAKING, AND DOCUMENTATION GREATER THAN 75 MINUTES. - Past Medical History Past Medical History: Diabetes, Seizures - Past Surgical History Surgical History: Appendectomy, Hysterectomy - Family History Family Medical History: Cancer, [place], Coronary Artery Disease - Social History Does patient currently use any type of tobacco product: No Have you used tobacco products in the last 12 months: No Type of Tobacco Use: None Does any household member use tobacco: No Alcohol Use: None Drug Use: None - Medications Home Medications: amoxicillin Adverse Reaction (Verified 12/11/17 00:19) carisoprodol Adverse Reaction (Verified 12/11/17 00:19) cephalexin [From Keflex] Adverse Reaction (Verified 12/11/17 00:19) clavulanic acid [From Augmentin] Adverse Reaction (Verified 12/11/17 00:19) CONTINUE taking the following medications NK 07/04/22 [History] - Review of Systems Constitutional: Weakness. denies: Fever, Chills Eyes: No Symptoms Reported ENT: No Symptoms Reported Respiratory: No Symptoms Reported Cardiovascular: No Symptoms Reported Gastrointestinal: See HPI, Nausea, Vomiting, Abdominal Pain. denies: Diarrhea, Melena, Hematochezia Genitourinary: No Symptoms Reported Musculoskeletal: No Symptoms Reported Skin: No Symptoms Reported Neurological: Weakness - Physical Exam Vital Signs: Temperature 98.7 F Pulse Rate [Brachial] 88 Pulse Rate 84 Respiratory Rate 18 Blood Pressure [Left Arm] 122/84 Blood Pressure 130/85 O2 Sat by Pulse Oximetry 99 Oriented: Normal Eyes: Normal Ear: Normal Nose: Normal Throat: Normal Respiratory: Clear Throughout Cardiovascular: Normal : Normal Auscultation: Bowel Sounds: Normal Palpation: Normal Tenderness: Diffuse, Mild. negative: Rebound, Guarding, Rigidity Skin: Decreased [place] Musculoskeletal: Normal Psychiatric: Normal Mood Description: Calm Affect: Normal Speech Pattern: Clear - Assessment/Plan (1) Acute hypokalemia Status: Acute Plan: ADMIT, NORMAL SALINE WITH 20MEQ KCL AT 100 ML/HR, LEVAQUIN 500MG IV DAILY, FOSPHENYTOIN SODIUM 100MG IV TID, OTBS ACHS, HUMULIN R SLIDING SCALE, ZOFRAN 4MG IV Q6H PRN, THE POTASSIUM AND MAGNESIUM PROTOCOLS. (2) Hyponatremia Status: Acute (3) Dehydration Status: Acute (4) Hypomagnesemia Status: Acute (5) Intractable nausea and vomiting Status: Acute (6) Diabetes mellitus Qualifiers: Diabetes mellitus type: type 2 Diabetes mellitus residential insulin use: without residential use Diabetes mellitus complication status: with hyperglycemia Qualified Code(s): E11.65 - Type 2 diabetes mellitus with hyperglycemia Status: Chronic (7) Seizure disorder Status: Chronic - Allergies Allergies/Adverse Reactions: Allergies Allergy/AdvReac Type Severity Reaction Status Date / Time amoxicillin AdvReac Verified 12/11/17 00:19 carisoprodol AdvReac Verified 12/11/17 00:19 cephalexin [From Keflex] AdvReac Verified 12/11/17 00:19 clavulanic acid AdvReac Verified 12/11/17 00:19 [From Augmentin]
[2022-07-06] MEDS: LEVSIN/MAALOX/LIDOC VISC PO SCH ×4 (11:43→21:21)
[2022-07-07] MEDS: MAALOX or MYLANTA PO PRN ×2 (00:41→05:04)
[2022-07-07] MEDS: NS 1/2 + KCL 20 MEQ/L 1,000 ML IV SCH ×3 (05:00→20:40)
[2022-07-07] MEDS: CEREBYX INJ 100 MG in NS 50 ML IV 50 ML IV SCH ×3 (05:04→21:25)
[2022-07-07] MEDS: NovoLIN R (or HumuLIN R) SC PRN ×3 (05:44→20:58)
[2022-07-07 05:57] LABS: BASOPHILS % (AUTO) 0.5 % (0.2-1.0); EOSINOPHILS # (AUTO) 0.1 x10^3/uL (0.0-0.2); EOSINOPHILS % (AUTO) 0.8 % (0.9-2.9); HEMATOCRIT 42.6 % (36.0-47.0); HEMOGLOBIN 14.8 g/dL (12.0-16.0); LYMPHOCYTES # (AUTO) 3.9 X10^3/uL (1.3-2.9); LYMPHOCYTES % (AUTO) 43.3 % (21.0-51.0); MEAN CORPUSCULAR HEMOGLOBIN 30.2 pg (27.0-34.0); MEAN CORPUSCULAR HGB CONC 34.7 g/dL (33.0-35.0); MEAN CORPUSCULAR VOLUME 87.1 fL (80.0-100.0); MEAN PLATELET VOLUME 8.2 fL (7.4-11.0); MONOCYTES # (AUTO) 0.6 x10^3/uL (0.3-0.8); MONOCYTES % (AUTO) 6.9 % (0.0-13.0); NEUTROPHILS # (AUTO) 4.3 x10^3/uL (2.2-4.8); NEUTROPHILS % (AUTO) 48.5 % (42.0-75.0); RED CELL DISTRIBUTION WIDTH 13.6 % (11.6-16.5)
[2022-07-07 06:14] LABS: ALANINE AMINOTRANSFERASE 87 Units/L (12-78); ALBUMIN 3.8 g/dL (3.4-5.0); ALKALINE PHOSPHATASE 127 Units/L (46-116); ASPARTATE AMINO TRANSFERASE 106 Units/L (15-37); BLOOD UREA NITROGEN 17 mg/dL (7-18); CALCIUM 8.7 mg/dL (8.5-10.1); CARBON DIOXIDE 29.4 mmol/L (21-32); CHLORIDE 95 mmol/L (98-107); COR NA(FOR HYPERGLY) 137 mmol/L (136-145); CREATININE 0.73 mg/dL (0.55-1.02); SODIUM 133 mmol/L (136-145); eGFR NON BLACK RACES > 60 (>60)
[2022-07-07] MEDS: LEVAQUIN PREMIX IV 500 MG 500 MG/100 ML BAG IV SCH (08:22)
[2022-07-07] MEDS: LEVSIN/MAALOX/LIDOC VISC PO SCH ×4 (08:22→20:32)
[2022-07-07] MEDS: ZOFRAN INJ 4 MG VIAL IVP PRN ×2 (08:25→14:25)
[2022-07-07] MEDS: PEPCID 20 MG VIAL 20 MG in NS 50 ML IV 50 ML IV SCH ×2 (10:16→20:30)
[2022-07-07] MEDS: PROTONIX INJ 40 MG VIAL IVP SCH ×2 (10:16→20:32)
--- NOTE | 2022-07-07 17:00 | PCM.PROG ---
Progress Note - Progress Note for Day of Date of Exam: 07/06/22 - Subjective Subjective: IS CURRENTLY INPATIENT STATUS FOR TREATMENT OF ACUTE HYPOKALEMIA, HYPONATREMIA, DEHYDRATION, HYPOMAGNESEMIA, INTRACTABLE NAUSEA AND VOMITING, AND SEIZURE DISORDER. PMH INCLUDES TYPE 2 DIABETES, SEIZURE DISORDER, HX OF TRAUMATIC BRAIN INJURY, APPENDECTOMY, , HYSTERECTOMY, AND KYPHOPLASTY. TODAY, SHE IS ALERT AND ORIENTED, LYING IN BED ON MORNING ROUNDS. SHE CONTINUES TO COMPLAIN OF HEARTBURN AND MILD EPIGASTRIC PAIN. SHE HAS BEEN HYPERTENSIVE THROUGHOUT THE NIGHT. SHE DENIES HAVING ANY SEIZURE ACTIVITY SINCE ADMISSION. UPON EXAMINATION, HEART IS REGULAR IN RATE AND RHYTHM. BILATERAL LUNGS ARE CLEAR TO AUSCULTATION. ABDOMEN IS ROUND, SOFT, AND NON-TENDER WITH NORMAL BOWEL SOUNDS NOTED IN ALL QUADRANTS. NO UPPER OR LOWER EXTREMITY EDEMA NOTED. HER VITALS THIS MORNING ARE: 98.7-88-18-99%-122/84. LABS WERE OBTAINED. WBC 9.0, RBC 5.11, HGB 15.5, CT 44.7, PLT COUNT 158, SODIUM 132, POTASSIUM 3.8, CHLORIDE 90, CARBON DIOXIDE 35.4, BUN 19, CREATININE 0.77, GLUCOSE 245, CALCIUM 9.0, TOTAL BILI 1.30, AST 129, ALT 76, ALK PHOS 123, TOTAL PROTEIN 7.5, ALBUMIN 3.9. BLOOD AND URINE CULTURES ARE PENDING. SHE IS CURRENTLY RECEIVING NORMAL SALINE WITH 20MEQ KCL AT 100 ML/HR, LEVAQUIN 500MG IV DAILY, FOSPHENYTOIN SODIUM 100MG IV TID, OTBS ACHS, HUMULIN R SLIDING SCALE, ZOFRAN 4MG IV Q6H PRN, THE POTASSIUM AND MAGNESIUM PROTOCOLS. TODAY, WE WILL ADD GI COCKTAIL 15ML QID. OTHERWISE, WE WILL CONTINUE WITH CURRENT PLAN OF CARE. WE WILL FOLLOW-UP WITH AM LABS AND CONTINUE TO MONITOR. TIME SPENT ON CLINICAL ASSESSMENT, REVIEWING LABS AND IMAGING, DECISION MAKING, AND DOCUMENTATION GREATER THAN 45 MINUTES. - Past Medical Family Social History Past Med/Fam/Surg Hx: No changes since H&P Allergies: Allergies amoxicillin Adverse Reaction (Verified 12/11/17 00:19) carisoprodol Adverse Reaction (Verified 12/11/17 00:19) cephalexin [From Keflex] Adverse Reaction (Verified 12/11/17 00:19) clavulanic acid [From Augmentin] Adverse Reaction (Verified 12/11/17 00:19) - Review of Systems ROS: No change since H&P - Vital Signs and I&O's Vital Signs: Temperature 98.5 F Pulse Rate [Brachial] 96 Pulse Rate 84 Respiratory Rate 15 Blood Pressure [Left Arm] 134/81 Blood Pressure 130/85 O2 Sat by Pulse Oximetry 97 Intake and Output: Intake & Output 07/05/22 07/06/22 07/07/22 07/08/22 11:59 11:59 11:59 11:59 Intake Total 2494 / 2494 4654 / 4654 2897 / 2897 988 / 988 Output Total 0 / 0 Balance 2494 / 2494 4654 / 4654 2897 / 2897 988 / 988 - Physical Exam Oriented: Normal Eyes: Normal Ear: Normal Nose: Normal Throat: Normal Respiratory: Normal Cardiovascular: Normal : Normal Auscultation: Bowel Sounds: Normal Palpation: Normal Tenderness: Epigastric, Mild. negative: Rebound, Guarding, Rigidity Skin: Decreased Turgur Musculoskeletal: Normal Psychiatric: Normal Mood Description: Calm Affect: Normal Speech Pattern: Clear - Laboratory and Diagnostics Result Diagrams: 07/07/22 05:34 07/07/22 05:34 Labs: 07/05/22 10:40 Blood Blood Culture - Preliminary 07/05/22 10:30 Blood Blood Culture - Preliminary 07/06/22 01:40 Urine,Clean Catch Urine Culture - Preliminary 07/04/22 12:14 Urine,Clean Catch Urine Culture - Final Laboratory WBC 9.0 X10^3/uL (3.6-10.0) 07/07/22 05:34 RBC 4.90 X10^6/uL (3.5-5.4) 07/07/22 05:34 Hgb 14.8 g/dL (12.0-16.0) 07/07/22 05:34 Hct 42.6 % (36.0-47.0) 07/07/22 05:34 MCV 87.1 fL (80.0-100.0) 07/07/22 05:34 MCH 30.2 pg (27.0-34.0) 07/07/22 05:34 MCHC 34.7 g/dL (33.0-35.0) 07/07/22 05:34 RDW 13.6 % (11.6-16.5) 07/07/22 05:34 Plt Count 167 X10^3/uL (150.0-450.0) 07/07/22 05:34 MPV 8.2 fL (7.4-11.0) 07/07/22 05:34 Neut % (Auto) 48.5 % (42.0-75.0) 07/07/22 05:34 Lymph % (Auto) 43.3 % (21.0-51.0) 07/07/22 05:34 [place] % (Auto) 6.9 % (0.0-13.0) 07/07/22 05:34 Eos % (Auto) 0.8 % (0.9-2.9) L 07/07/22 05:34 Baso % (Auto) 0.5 % (0.2-1.0) 07/07/22 05:34 Neut # (Auto) 4.3 x10^3/uL (2.2-4.8) 07/07/22 05:34 Lymph # (Auto) 3.9 X10^3/uL (1.3-2.9) H 07/07/22 05:34 [place] # (Auto) 0.6 x10^3/uL (0.3-0.8) 07/07/22 05:34 Eos # (Auto) 0.1 x10^3/uL (0.0-0.2) 07/07/22 05:34 Baso # (Auto) 0.0 X10^3/uL (0.0-0.1) 07/07/22 05:34 Absolute Nucleated RBC 0.0 /100WBC 07/07/22 05:34 Sodium 133 mmol/L (136-145) L 07/07/22 05:34 Corrected Sodium 137 mmol/L (136-145) 07/07/22 05:34 Potassium 3.6 mmol/L (3.5-5.1) 07/07/22 05:34 Chloride 95 mmol/L (98-107) L 07/07/22 05:34 Carbon Dioxide 29.4 mmol/L (21-32) 07/07/22 05:34 BUN 17 mg/dL (7-18) 07/07/22 05:34 Creatinine 0.73 mg/dL (0.55-1.02) 07/07/22 05:34 Est GFR (MDRD) Af Amer > 60 (>60) 07/07/22 05:34 Est GFR (MDRD) Non-Af > 60 (>60) 07/07/22 05:34 Glucose 271 mg/dL (65-99) H 07/07/22 05:34 POC Glucose (mg/dL) 190 mg/dL (65-99) H 07/07/22 16:23 Lactic Acid 1.1 mmol/L (0.4-2.0) 07/05/22 10:30 Calcium 8.7 mg/dL (8.5-10.1) 07/07/22 05:34 Corrected Calcium TNP 07/07/22 05:34 Magnesium 2.4 mg/dL (2.0-2.9) 07/05/22 05:46 Total Bilirubin 0.70 mg/dL (0.2-1.0) 07/07/22 05:34 AST 106 Units/L (15-37) H 07/07/22 05:34 ALT 87 Units/L (12-78) H 07/07/22 05:34 Alkaline Phosphatase 127 Units/L (46-116) H 07/07/22 05:34 Total Protein 7.0 g/dL (6.4-8.2) 07/07/22 05:34 Albumin 3.8 g/dL (3.4-5.0) 07/07/22 05:34 Globulin 3.2 g/dL (2.5-4.5) 07/07/22 05:34 Albumin/Globulin Ratio 1.2 Ratio (1.1-2.1) 07/07/22 05:34 Lipase 73 Units/L (73-393) 07/04/22 10:47 Specimen Type Clean catch urine 07/04/22 12:14 Urine Color Yellow (YELLOW) 07/04/22 12:14 Urine Appearance Clear (CLEAR) 07/04/22 12:14 Urine pH 8.0 (5.0 - 8.0) 07/04/22 12:14 Ur Specific [place] 1.010 (1.000-1.030) 07/04/22 12:14 Urine Protein 2+ (NEGATIVE) 07/04/22 12:14 Urine Glucose (UA) 4+ (NEGATIVE) 07/04/22 12:14 Urine Ketones 1+ (NEGATIVE) 07/04/22 12:14 Urine Blood 1+ (NEGATIVE) 07/04/22 12:14 Urine Nitrite Negative (NEGATIVE) 07/04/22 12:14 Urine Bilirubin Negative (NEGATIVE) 07/04/22 12:14 Urine Urobilinogen Normal (NORMAL) 07/04/22 12:14 Ur Leukocyte Esterase 2+ (NEGATIVE) 07/04/22 12:14 Urine RBC 0-2 /HPF (0-3) 07/04/22 12:14 Urine WBC 5-10 /HPF (0-5) A 07/04/22 12:14 Ur Squamous Epith Cells Few /HPF (NEGATIVE) 07/04/22 12:14 Amorphous Sediment 1+ /HPF (NEGATIVE) 07/04/22 12:14 Urine Bacteria Trace /HPF (NEGATIVE) 07/04/22 12:14 Granular Casts Rare /LPF (NEGATIVE) 07/04/22 12:14 Urine Mucus Rare /HPF (NEGATIVE) 07/04/22 12:14 Ur Culture Indicated? Yes/culture set up 07/04/22 12:14 - Plan (1) Acute hypokalemia Status: Acute Plan: NORMAL SALINE WITH 20MEQ KCL AT 100 ML/HR, LEVAQUIN 500MG IV DAILY, FOSPHENYTOIN SODIUM 100MG IV TID, OTBS ACHS, HUMULIN R SLIDING SCALE, ZOFRAN 4MG IV Q6H PRN, GI COCKTAIL 15ML QID, THE POTASSIUM AND MAGNESIUM PROTOCOLS. (2) Hyponatremia Status: Acute (3) Dehydration Status: Acute (4) Hypomagnesemia Status: Acute (5) Intractable nausea and vomiting Status: Acute (6) Epigastric pain Status: Acute (7) Diabetes mellitus Status: Chronic Qualifiers: Diabetes mellitus type: type 2 Diabetes mellitus senior care insulin use: without senior care use Diabetes mellitus complication status: with hyperglycemia Qualified Code(s): E11.65 - Type 2 diabetes mellitus with hyperglycemia (8) Seizure disorder Status: Chronic
--- NOTE | 2022-07-07 17:36 | PCM.PROG ---
Progress Note - Progress Note for Day of Date of Exam: 07/07/22 - Subjective Subjective: IS CURRENTLY INPATIENT STATUS FOR TREATMENT OF ACUTE HYPOKALEMIA, HYPONATREMIA, DEHYDRATION, HYPOMAGNESEMIA, INTRACTABLE NAUSEA AND VOMITING, AND SEIZURE DISORDER. PMH INCLUDES TYPE 2 DIABETES, SEIZURE DISORDER, HX OF TRAUMATIC BRAIN INJURY, APPENDECTOMY, , HYSTERECTOMY, AND KYPHOPLASTY. TODAY, SHE IS ALERT AND ORIENTED, LYING IN BED ON MORNING ROUNDS. SHE CONTINUES TO COMPLAIN OF HEARTBURN AND MILD EPIGASTRIC PAIN. SHE DENIES SIGNIFICANT IMPROVEMENT SINCE YESTERDAY. SHE DENIES HAVING ANY SEIZURE ACTIVITY SINCE ADMISSION. UPON EXAMINATION, HEART IS REGULAR IN RATE AND RHYTHM. BILATERAL LUNGS ARE CLEAR TO AUSCULTATION. ABDOMEN IS ROUND, SOFT, AND NON- TENDER WITH NORMAL BOWEL SOUNDS NOTED IN ALL QUADRANTS. NO UPPER OR LOWER EXTREMITY EDEMA NOTED. HER VITALS THIS MORNING ARE: 98.2-89-18-95%-147/88. LABS WERE OBTAINED. WBC 9.0, RBC 4.90, HGB 14.8, HCT 42.6, PLT COUNT 167, SODIUM 133, POTASSIUM 3.6, CHLORIDE 95, BUN 17, CREATININE 0.73, GLUCOSE 271, CALCIUM 8.7, T OTAL BILI 0.70, AST 106, ALT 87, ALK PHOS 127, TOTAL PROTEIN 7.0, ALBUMIN 3.8. BLOOD AND URINE CULTURES ARE PENDING. SHE IS CURRENTLY RECEIVING NORMAL SALINE WITH 20MEQ KCL AT 100 ML/HR, LEVAQUIN 500MG IV DAILY, FOSPHENYTOIN SODIUM 100MG IV TID, OTBS ACHS, HUMULIN R SLIDING SCALE, GI COCKTAIL 15ML QID, ZOFRAN 4MG IV Q6H PRN, THE POTASSIUM AND MAGNESIUM PROTOCOLS. TODAY, WE WILL ADD PEPCID 20MG I V Q12H AND PROTONIX 40MG IV BID. OTHERWISE, WE WILL CONTINUE WITH CURRENT PLAN OF CARE. WE WILL FOLLOW-UP WITH AM LABS AND CONTINUE TO MONITOR. TIME SPENT ON CLINICAL ASSESSMENT, REVIEWING LABS AND IMAGING, DECISION MAKING, AND DOCUMENTATION GREATER THAN 45 MINUTES. - Past Medical Family Social History Past Med/Fam/Surg Hx: No changes since H&P Allergies: Allergies amoxicillin Adverse Reaction (Verified 12/11/17 00:19) carisoprodol Adverse Reaction (Verified 12/11/17 00:19) cephalexin [From Keflex] Adverse Reaction (Verified 12/11/17 00:19) clavulanic acid [From Augmentin] Adverse Reaction (Verified 12/11/17 00:19) - Review of Systems ROS: No change since H&P - Vital Signs and I&O's Vital Signs: Temperature 98.5 F Pulse Rate [Brachial] 96 Pulse Rate 84 Respiratory Rate 15 Blood Pressure [Left Arm] 134/81 Blood Pressure 130/85 O2 Sat by Pulse Oximetry 97 Intake and Output: Intake & Output 07/05/22 07/06/22 07/07/22 07/08/22 11:59 11:59 11:59 11:59 Intake Total 2494 / 2494 4654 / 4654 2897 / 2897 1378 / 1378 Output Total 0 / 0 Balance 2494 / 2494 4654 / 4654 2897 / 2897 1378 / 1378 - Physical Exam Oriented: Normal Eyes: Normal Ear: Normal Nose: Normal Throat: Normal Respiratory: Normal Cardiovascular: Normal : Normal Auscultation: Bowel Sounds: Normal Palpation: Normal Tenderness: Epigastric, Mild. negative: Rebound, Guarding, Rigidity Skin: Decreased Turgur Musculoskeletal: Normal Psychiatric: Normal Mood Description: Calm Affect: Normal Speech Pattern: Clear - Laboratory and Diagnostics Result Diagrams: 07/07/22 05:34 07/07/22 05:34 Labs: 07/05/22 10:40 Blood Blood Culture - Preliminary 07/05/22 10:30 Blood Blood Culture - Preliminary 07/06/22 01:40 Urine,Clean Catch Urine Culture - Preliminary 07/04/22 12:14 Urine,Clean Catch Urine Culture - Final Laboratory WBC 9.0 X10^3/uL (3.6-10.0) 07/07/22 05:34 RBC 4.90 X10^6/uL (3.5-5.4) 07/07/22 05:34 Hgb 14.8 g/dL (12.0-16.0) 07/07/22 05:34 Hct 42.6 % (36.0-47.0) 07/07/22 05:34 MCV 87.1 fL (80.0-100.0) 07/07/22 05:34 MCH 30.2 pg (27.0-34.0) 07/07/22 05:34 MCHC 34.7 g/dL (33.0-35.0) 07/07/22 05:34 RDW 13.6 % (11.6-16.5) 07/07/22 05:34 Plt Count 167 X10^3/uL (150.0-450.0) 07/07/22 05:34 MPV 8.2 fL (7.4-11.0) 07/07/22 05:34 Neut % (Auto) 48.5 % (42.0-75.0) 07/07/22 05:34 Lymph % (Auto) 43.3 % (21.0-51.0) 07/07/22 05:34 [place] % (Auto) 6.9 % (0.0-13.0) 07/07/22 05:34 Eos % (Auto) 0.8 % (0.9-2.9) L 07/07/22 05:34 Baso % (Auto) 0.5 % (0.2-1.0) 07/07/22 05:34 Neut # (Auto) 4.3 x10^3/uL (2.2-4.8) 07/07/22 05:34 Lymph # (Auto) 3.9 X10^3/uL (1.3-2.9) H 07/07/22 05:34 [place] # (Auto) 0.6 x10^3/uL (0.3-0.8) 07/07/22 05:34 Eos # (Auto) 0.1 x10^3/uL (0.0-0.2) 07/07/22 05:34 Baso # (Auto) 0.0 X10^3/uL (0.0-0.1) 07/07/22 05:34 Absolute Nucleated RBC 0.0 /100WBC 07/07/22 05:34 Sodium 133 mmol/L (136-145) L 07/07/22 05:34 Corrected Sodium 137 mmol/L (136-145) 07/07/22 05:34 Potassium 3.6 mmol/L (3.5-5.1) 07/07/22 05:34 Chloride 95 mmol/L (98-107) L 07/07/22 05:34 Carbon Dioxide 29.4 mmol/L (21-32) 07/07/22 05:34 BUN 17 mg/dL (7-18) 07/07/22 05:34 Creatinine 0.73 mg/dL (0.55-1.02) 07/07/22 05:34 Est GFR (MDRD) Af Amer > 60 (>60) 07/07/22 05:34 Est GFR (MDRD) Non-Af > 60 (>60) 07/07/22 05:34 Glucose 271 mg/dL (65-99) H 07/07/22 05:34 POC Glucose (mg/dL) 190 mg/dL (65-99) H 07/07/22 16:23 Lactic Acid 1.1 mmol/L (0.4-2.0) 07/05/22 10:30 Calcium 8.7 mg/dL (8.5-10.1) 07/07/22 05:34 Corrected Calcium TNP 07/07/22 05:34 Magnesium 2.4 mg/dL (2.0-2.9) 07/05/22 05:46 Total Bilirubin 0.70 mg/dL (0.2-1.0) 07/07/22 05:34 AST 106 Units/L (15-37) H 07/07/22 05:34 ALT 87 Units/L (12-78) H 07/07/22 05:34 Alkaline Phosphatase 127 Units/L (46-116) H 07/07/22 05:34 Total Protein 7.0 g/dL (6.4-8.2) 07/07/22 05:34 Albumin 3.8 g/dL (3.4-5.0) 07/07/22 05:34 Globulin 3.2 g/dL (2.5-4.5) 07/07/22 05:34 Albumin/Globulin Ratio 1.2 Ratio (1.1-2.1) 07/07/22 05:34 Lipase 73 Units/L (73-393) 07/04/22 10:47 Specimen Type Clean catch urine 07/04/22 12:14 Urine Color Yellow (YELLOW) 07/04/22 12:14 Urine Appearance Clear (CLEAR) 07/04/22 12:14 Urine pH 8.0 (5.0 - 8.0) 07/04/22 12:14 Ur Specific [place] 1.010 (1.000-1.030) 07/04/22 12:14 Urine Protein 2+ (NEGATIVE) 07/04/22 12:14 Urine Glucose (UA) 4+ (NEGATIVE) 07/04/22 12:14 Urine Ketones 1+ (NEGATIVE) 07/04/22 12:14 Urine Blood 1+ (NEGATIVE) 07/04/22 12:14 Urine Nitrite Negative (NEGATIVE) 07/04/22 12:14 Urine Bilirubin Negative (NEGATIVE) 07/04/22 12:14 Urine Urobilinogen Normal (NORMAL) 07/04/22 12:14 Ur Leukocyte Esterase 2+ (NEGATIVE) 07/04/22 12:14 Urine RBC 0-2 /HPF (0-3) 07/04/22 12:14 Urine WBC 5-10 /HPF (0-5) A 07/04/22 12:14 Ur Squamous Epith Cells Few /HPF (NEGATIVE) 07/04/22 12:14 Amorphous Sediment 1+ /HPF (NEGATIVE) 07/04/22 12:14 Urine Bacteria Trace /HPF (NEGATIVE) 07/04/22 12:14 Granular Casts Rare /LPF (NEGATIVE) 07/04/22 12:14 Urine Mucus Rare /HPF (NEGATIVE) 07/04/22 12:14 Ur Culture Indicated? Yes/culture set up 07/04/22 12:14 - Plan (1) Acute hypokalemia Status: Acute Plan: NORMAL SALINE WITH 20MEQ KCL AT 100 ML/HR, LEVAQUIN 500MG IV DAILY, FOSPHENYTOIN SODIUM 100MG IV TID, OTBS ACHS, HUMULIN R SLIDING SCALE, ZOFRAN 4MG IV Q6H PRN, GI COCKTAIL 15ML QID, PEPCID 20MG IV BID, PROTONIX 40MG IV BID, THE POTASSIUM AND MAGNESIUM PROTOCOLS. (2) Hyponatremia Status: Acute (3) Dehydration Status: Acute (4) Hypomagnesemia Status: Acute (5) Intractable nausea and vomiting Status: Acute (6) Epigastric pain Status: Acute (7) Diabetes mellitus Status: Chronic Qualifiers: Diabetes mellitus type: type 2 Diabetes mellitus senior living insulin use: without senior living use Diabetes mellitus complication status: with hyperglycemia Qualified Code(s): E11.65 - Type 2 diabetes mellitus with hyperglycemia (8) Seizure disorder Status: Chronic
[2022-07-07] MEDS ORDERED: NS 100 ML IV 100 ML IV ONE (21:00)
[2022-07-08] MEDS: MAALOX or MYLANTA PO PRN ×3 (02:16→12:55)
[2022-07-08] MEDS: ZOFRAN INJ 4 MG VIAL IVP PRN ×2 (02:16→08:27)
[2022-07-08] MEDS: NS 1/2 + KCL 20 MEQ/L 1,000 ML IV SCH ×3 (03:45→20:48)
[2022-07-08 05:05] LABS: BASOPHILS % (AUTO) 0.3 % (0.2-1.0); EOSINOPHILS # (AUTO) 0.1 x10^3/uL (0.0-0.2); EOSINOPHILS % (AUTO) 1.7 % (0.9-2.9); HEMATOCRIT 40.6 % (36.0-47.0); LYMPHOCYTES # (AUTO) 3.6 X10^3/uL (1.3-2.9); LYMPHOCYTES % (AUTO) 42.5 % (21.0-51.0); MEAN CORPUSCULAR HEMOGLOBIN 30.3 pg (27.0-34.0); MEAN CORPUSCULAR HGB CONC 34.5 g/dL (33.0-35.0); MEAN CORPUSCULAR VOLUME 87.8 fL (80.0-100.0); MEAN PLATELET VOLUME 8.2 fL (7.4-11.0); MONOCYTES # (AUTO) 0.6 x10^3/uL (0.3-0.8); MONOCYTES % (AUTO) 6.7 % (0.0-13.0); NEUTROPHILS # (AUTO) 4.2 x10^3/uL (2.2-4.8); NEUTROPHILS % (AUTO) 48.8 % (42.0-75.0); RED BLOOD COUNT 4.63 X10^6/uL (3.5-5.4); RED CELL DISTRIBUTION WIDTH 13.4 % (11.6-16.5); WHITE BLOOD COUNT 8.6 X10^3/uL (3.6-10.0)
[2022-07-08 05:14] LABS: ALANINE AMINOTRANSFERASE 69 Units/L (12-78); ALBUMIN 3.5 g/dL (3.4-5.0); ALKALINE PHOSPHATASE 109 Units/L (46-116); ASPARTATE AMINO TRANSFERASE 67 Units/L (15-37); BLOOD UREA NITROGEN 12 mg/dL (7-18); CALCIUM 8.3 mg/dL (8.5-10.1); CARBON DIOXIDE 27.8 mmol/L (21-32); CHLORIDE 101 mmol/L (98-107); COR NA(FOR HYPERGLY) 139 mmol/L (136-145); CREATININE 0.54 mg/dL (0.55-1.02); SODIUM 136 mmol/L (136-145); TOTAL PROTEIN 6.5 g/dL (6.4-8.2); eGFR NON BLACK RACES > 60 (>60)
[2022-07-08] MEDS: CEREBYX INJ 100 MG in NS 50 ML IV 50 ML IV SCH ×3 (06:10→21:02)
[2022-07-08] MEDS: NovoLIN R (or HumuLIN R) SC PRN ×4 (06:14→20:44)
[2022-07-08] MEDS: PROTONIX INJ 40 MG VIAL IVP SCH ×2 (08:27→20:45)
[2022-07-08] MEDS: LEVSIN/MAALOX/LIDOC VISC PO SCH ×4 (08:27→20:46)
[2022-07-08] MEDS: PEPCID 20 MG VIAL 20 MG in NS 50 ML IV 50 ML IV SCH ×2 (08:28→20:46)
[2022-07-08] MEDS: LEVAQUIN PREMIX IV 500 MG 500 MG/100 ML BAG IV SCH (09:12)
--- NOTE | 2022-07-08 11:24 | PCM.PROG ---
Progress Note Progress Note for Day of Date of Exam: 07/08/22 Subjective Subjective: IS CURRENTLY INPATIENT STATUS FOR TREATMENT OF ACUTE HYPOKALEMIA, HYPONATREMIA, DEHYDRATION, HYPOMAGNESEMIA, INTRACTABLE NAUSEA AND VOMITING, AND SEIZURE DISORDER. PMH INCLUDES TYPE 2 DIABETES, SEIZURE DISORDER, HX OF TRAUMATIC BRAIN INJURY, APPENDECTOMY, , HYSTERECTOMY, AND KYPHOPLASTY. TODAY, SHE IS ALERT AND ORIENTED, LYING IN BED ON MORNING ROUNDS. SHE CONTINUES TO COMPLAIN OF HEARTBURN AND MILD EPIGASTRIC PAIN. SHE DENIES SIGNIFICANT IMPROVEMENT SINCE YESTERDAY. SHE DENIES HAVING ANY SEIZURE ACTIVITY SINCE ADMISSION. UPON EXAMINATION, HEART IS REGULAR IN RATE AND RHYTHM. BILATERAL LUNGS ARE CLEAR TO AUSCULTATION. ABDOMEN IS ROUND, SOFT, AND NON- TENDER WITH NORMAL BOWEL SOUNDS NOTED IN ALL QUADRANTS. NO UPPER OR LOWER EXTREMITY EDEMA NOTED. HER VITALS THIS MORNING ARE: 98.2-89-18-95%-147/88. LABS WERE OBTAINED. WBC 9.0, RBC 4.90, HGB 14.8, HCT 42.6, PLT COUNT 167, SODIUM 133, POTASSIUM 3.6, CHLORIDE 95, BUN 17, CREATININE 0.73, GLUCOSE 271, CALCIUM 8.7, TOTAL BILI 0.70, AST 106, ALT 87, ALK PHOS 127, TOTAL PROTEIN 7.0, ALBUMIN 3.8. BLOOD AND URINE CULTURES ARE PENDING. SHE IS CURRENTLY RECEIVING NORMAL SALINE WITH 20MEQ KCL AT 100 ML/HR, LEVAQUIN 500MG IV DAILY, FOSPHENYTOIN SODIUM 100MG IV TID, OTBS ACHS, HUMULIN R SLIDING SCALE, GI COCKTAIL 15ML QID, ZOFRAN 4MG IV Q6H PRN, THE POTASSIUM AND MAGNESIUM PROTOCOLS. TODAY, WE WILL ADD PEPCID 20MG IV Q12H AND PROTONIX 40MG IV BID. OTHERWISE, WE WILL CONTINUE WITH CURRENT PLAN OF CARE. WE WILL FOLLOW-UP WITH AM LABS AND CONTINUE TO MONITOR. TIME SPENT ON CLINICAL ASSESSMENT, REVIEWING LABS AND IMAGING, DECISION MAKING, AND DOCUMENTATION GREATER THAN 45 MINUTES. Sunday Patient reports that she is feeling a little bit better this morning. She tried yesterday and became very nauseated. She still reports having a fair amount of acid reflux. Her labs look good overall this morning except it is noted her sugar is still running high. This morning her glucose was 213. She is well- hydrated now. We will try given her Zofran before meals and try to advance her diet today to see how she does and if she is tolerating it and not throwing up by tomorrow we will plan on discharging her home. Past Medical Family Social History Past Med/Fam/Surg Hx: No changes since H&P Allergies: Allergies amoxicillin Adverse Reaction (Verified 12/11/17 00:19) carisoprodol Adverse Reaction (Verified 12/11/17 00:19) cephalexin [From Keflex] Adverse Reaction (Verified 12/11/17 00:19) clavulanic acid [From Augmentin] Adverse Reaction (Verified 12/11/17 00:19) Review of Systems ROS: No change since H&P Vital Signs and I&O's Vital Signs: Temperature 97.7 F Pulse Rate [Brachial] 72 Pulse Rate 84 Respiratory Rate 15 Blood Pressure [Left Arm] 131/83 Blood Pressure 130/85 O2 Sat by Pulse Oximetry 94 Intake and Output: Intake & Output 07/05/22 07/06/22 07/07/22 07/08/22 11:59 11:59 11:59 11:59 Intake Total 2494 / 2494 4654 / 4654 2897 / 2897 3806 / 3806 Output Total 0 / 0 Balance 2494 / 2494 4654 / 4654 2897 / 2897 3806 / 3806 Physical Exam Oriented: Normal Eyes: Normal Ear: Normal Nose: Normal Throat: Normal Respiratory: Normal Cardiovascular: Normal : Normal Auscultation: Bowel Sounds: Normal Tenderness: Epigastric and Mild; negative Rebound, Guarding or Rigidity Skin: Decreased [place]ur Musculoskeletal: Normal Psychiatric: Normal Mood Description: Calm Affect: Normal Speech Pattern: Clear Laboratory and Diagnostics Result Diagrams: 07/08/22 04:30 07/08/22 04:30 Labs: 07/06/22 01:40 Urine,Clean Catch Urine Culture - Final 07/05/22 10:40 Blood Blood Culture - Preliminary 07/05/22 10:30 Blood Blood Culture - Preliminary 07/04/22 12:14 Urine,Clean Catch Urine Culture - Final Laboratory WBC 8.6 X10^3/uL (3.6-10.0) 07/08/22 04:30 RBC 4.63 X10^6/uL (3.5-5.4) 07/08/22 04:30 Hgb 14.0 g/dL (12.0-16.0) 07/08/22 04:30 Hct 40.6 % (36.0-47.0) 07/08/22 04:30 MCV 87.8 fL (80.0-100.0) 07/08/22 04:30 MCH 30.3 pg (27.0-34.0) 07/08/22 04:30 MCHC 34.5 g/dL (33.0-35.0) 07/08/22 04:30 RDW 13.4 % (11.6-16.5) 07/08/22 04:30 Plt Count 161 X10^3/uL (150.0-450.0) 07/08/22 04:30 MPV 8.2 fL (7.4-11.0) 07/08/22 04:30 Neut % (Auto) 48.8 % (42.0-75.0) 07/08/22 04:30 Lymph % (Auto) 42.5 % (21.0-51.0) 07/08/22 04:30 [place] % (Auto) 6.7 % (0.0-13.0) 07/08/22 04:30 Eos % (Auto) 1.7 % (0.9-2.9) 07/08/22 04:30 Baso % (Auto) 0.3 % (0.2-1.0) 07/08/22 04:30 Neut # (Auto) 4.2 x10^3/uL (2.2-4.8) 07/08/22 04:30 Lymph # (Auto) 3.6 X10^3/uL (1.3-2.9) H 07/08/22 04:30 [place] # (Auto) 0.6 x10^3/uL (0.3-0.8) 07/08/22 04:30 Eos # (Auto) 0.1 x10^3/uL (0.0-0.2) 07/08/22 04:30 Baso # (Auto) 0.0 X10^3/uL (0.0-0.1) 07/08/22 04:30 Absolute Nucleated RBC 0.0 /100WBC 07/08/22 04:30 Sodium 136 mmol/L (136-145) 07/08/22 04:30 Corrected Sodium 139 mmol/L (136-145) 07/08/22 04:30 Potassium 4.4 mmol/L (3.5-5.1) 07/08/22 04:30 Chloride 101 mmol/L (98-107) 07/08/22 04:30 Carbon Dioxide 27.8 mmol/L (21-32) 07/08/22 04:30 BUN 12 mg/dL (7-18) 07/08/22 04:30 Creatinine 0.54 mg/dL (0.55-1.02) L 07/08/22 04:30 Est GFR (MDRD) Af Amer > 60 (>60) 07/08/22 04:30 Est GFR (MDRD) Non-Af > 60 (>60) 07/08/22 04:30 Glucose 213 mg/dL (65-99) H 07/08/22 04:30 POC Glucose (mg/dL) 218 mg/dL (65-99) H 07/08/22 06:00 Lactic Acid 1.1 mmol/L (0.4-2.0) 07/05/22 10:30 Calcium 8.3 mg/dL (8.5-10.1) L 07/08/22 04:30 Corrected Calcium TNP 07/08/22 04:30 Magnesium 2.4 mg/dL (2.0-2.9) 07/05/22 05:46 Total Bilirubin 0.50 mg/dL (0.2-1.0) 07/08/22 04:30 AST 67 Units/L (15-37) H 07/08/22 04:30 ALT 69 Units/L (12-78) 07/08/22 04:30 Alkaline Phosphatase 109 Units/L (46-116) 07/08/22 04:30 Total Protein 6.5 g/dL (6.4-8.2) 07/08/22 04:30 Albumin 3.5 g/dL (3.4-5.0) 07/08/22 04:30 Globulin 3.0 g/dL (2.5-4.5) 07/08/22 04:30 Albumin/Globulin Ratio 1.2 Ratio (1.1-2.1) 07/08/22 04:30 Lipase 73 Units/L (73-393) 07/04/22 10:47 Specimen Type Clean catch urine 07/04/22 12:14 Urine Color Yellow (YELLOW) 07/04/22 12:14 Urine Appearance Clear (CLEAR) 07/04/22 12:14 Urine pH 8.0 (5.0 - 8.0) 07/04/22 12:14 Ur Specific [place] 1.010 (1.000-1.030) 07/04/22 12:14 Urine Protein 2+ (NEGATIVE) 07/04/22 12:14 Urine Glucose (UA) 4+ (NEGATIVE) 07/04/22 12:14 Urine Ketones 1+ (NEGATIVE) 07/04/22 12:14 Urine Blood 1+ (NEGATIVE) 07/04/22 12:14 Urine Nitrite Negative (NEGATIVE) 07/04/22 12:14 Urine Bilirubin Negative (NEGATIVE) 07/04/22 12:14 Urine Urobilinogen Normal (NORMAL) 07/04/22 12:14 Ur Leukocyte Esterase 2+ (NEGATIVE) 07/04/22 12:14 Urine RBC 0-2 /HPF (0-3) 07/04/22 12:14 Urine WBC 5-10 /HPF (0-5) A 07/04/22 12:14 Ur Squamous Epith Cells Few /HPF (NEGATIVE) 07/04/22 12:14 Amorphous Sediment 1+ /HPF (NEGATIVE) 07/04/22 12:14 Urine Bacteria Trace /HPF (NEGATIVE) 07/04/22 12:14 Granular Casts Rare /LPF (NEGATIVE) 07/04/22 12:14 Urine Mucus Rare /HPF (NEGATIVE) 07/04/22 12:14 Ur Culture Indicated? Yes/culture set up 07/04/22 12:14 Plan (1) Acute hypokalemia: Status: Resolved Plan: NORMAL SALINE WITH 20MEQ KCL AT 100 ML/HR, LEVAQUIN 500MG IV DAILY, FOSPHENYTOIN SODIUM 100MG IV TID, OTBS ACHS, HUMULIN R SLIDING SCALE, ZOFRAN 4MG IV Q6H PRN, GI COCKTAIL 15ML QID, PEPCID 20MG IV BID, PROTONIX 40MG IV BID, THE POTASSIUM AND MAGNESIUM PROTOCOLS. (2) Hyponatremia: Status: Resolved (3) Dehydration: Status: Resolved (4) Hypomagnesemia: Status: Acute (5) Intractable nausea and vomiting: Status: Acute Plan: We will give the patient Zofran prior to meals and try to advance her diet today if she tolerates it. If she does we will plan on discharging her home in the morning. (6) Epigastric pain: Status: Acute (7) Diabetes mellitus: Status: Chronic Qualifiers: Diabetes mellitus complication status: with hyperglycemia Diabetes mellitus fpc insulin use: without fpc use Diabetes mellitus type: type 2 Qualified Code(s): E11.65 - Type 2 diabetes mellitus with hyperglycemia (8) Seizure disorder: Status: Chronic
[2022-07-08] MEDS: FIORICET TAB PO PRN ×2 (12:58→20:46)
[2022-07-08] MEDS ORDERED: CATAPRES TAB 0.1 MG PO ONE (15:43)
[2022-07-09] MEDS: FIORICET TAB PO PRN (04:40)
[2022-07-09] MEDS: MAALOX or MYLANTA PO PRN (04:40)
[2022-07-09] MEDS: NS 1/2 + KCL 20 MEQ/L 1,000 ML IV SCH (04:48)
[2022-07-09 05:33] LABS: BASOPHILS # (AUTO) 0.1 X10^3/uL (0.0-0.1); BASOPHILS % (AUTO) 0.7 % (0.2-1.0); EOSINOPHILS # (AUTO) 0.2 x10^3/uL (0.0-0.2); EOSINOPHILS % (AUTO) 2.1 % (0.9-2.9); HEMATOCRIT 41.2 % (36.0-47.0); HEMOGLOBIN 14.1 g/dL (12.0-16.0); LYMPHOCYTES # (AUTO) 3.6 X10^3/uL (1.3-2.9); LYMPHOCYTES % (AUTO) 49.2 % (21.0-51.0); MEAN CORPUSCULAR HEMOGLOBIN 30.3 pg (27.0-34.0); MEAN CORPUSCULAR HGB CONC 34.2 g/dL (33.0-35.0); MEAN CORPUSCULAR VOLUME 88.7 fL (80.0-100.0); MEAN PLATELET VOLUME 8.6 fL (7.4-11.0); MONOCYTES # (AUTO) 0.5 x10^3/uL (0.3-0.8); MONOCYTES % (AUTO) 7.2 % (0.0-13.0); NEUTROPHILS % (AUTO) 40.8 % (42.0-75.0); RED BLOOD COUNT 4.64 X10^6/uL (3.5-5.4); RED CELL DISTRIBUTION WIDTH 13.2 % (11.6-16.5); WHITE BLOOD COUNT 7.4 X10^3/uL (3.6-10.0)
[2022-07-09 05:43] LABS: ALANINE AMINOTRANSFERASE 66 Units/L (12-78); ALBUMIN 3.8 g/dL (3.4-5.0); ALKALINE PHOSPHATASE 117 Units/L (46-116); ASPARTATE AMINO TRANSFERASE 56 Units/L (15-37); BLOOD UREA NITROGEN 11 mg/dL (7-18); CALCIUM 8.7 mg/dL (8.5-10.1); CARBON DIOXIDE 26.7 mmol/L (21-32); CHLORIDE 103 mmol/L (98-107); COR NA(FOR HYPERGLY) 139 mmol/L (136-145); CREATININE 0.57 mg/dL (0.55-1.02); SODIUM 136 mmol/L (136-145); TOTAL PROTEIN 6.9 g/dL (6.4-8.2); eGFR NON BLACK RACES > 60 (>60)
[2022-07-09] MEDS: CEREBYX INJ 100 MG in NS 50 ML IV 50 ML IV SCH (05:54)
[2022-07-09 07:50] VITALS: BP 130/76
[2022-07-09] MEDS: LEVSIN/MAALOX/LIDOC VISC PO SCH (08:29)
[2022-07-09] MEDS: ZOFRAN INJ 4 MG VIAL IVP PRN (08:31)
[2022-07-09] MEDS: PEPCID 20 MG VIAL 20 MG in NS 50 ML IV 50 ML IV SCH (08:31)
[2022-07-09] MEDS: PROTONIX INJ 40 MG VIAL IVP SCH (08:31)
[2022-07-09] MEDS: LEVAQUIN PREMIX IV 500 MG 500 MG/100 ML BAG IV SCH (09:27)
== END 2022-07-09 10:50 | disposition home or self-care (01) | DRG 641 ==
LOC: ER 09:53 → MED/SURG 12:09
PROVIDERS: ADMIT Internal Medicine; ATTEND Internal Medicine
DX: R11.2 Nausea with vomiting, unspecified; R10.13 Epigastric pain; E87.1 Hypo-osmolality and hyponatremia; G40.802 Other epilepsy, not intractable, without status epilepticus; R00.0 Tachycardia, unspecified; E86.0 Dehydration; E87.6 Hypokalemia; E83.42 Hypomagnesemia; I10 Essential (primary) hypertension; E11.65 Type 2 diabetes mellitus with hyperglycemia